=== PATIENT | female | born 1935 | race Caucasian/White ===

== ENCOUNTER 2020-09-01 11:32 | Emergency (ER) | payer MEDICARE, OTHER ==
[~2020-09-01] VITALS: Ht 152.4 cm; Wt 48.1 kg
--- NOTE | 2020-09-01 12:07 | EKG ---
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
[2020-09-01 12:18] LABS: BASO % 1 % (0-3); CALCIUM 9.4 mg/dL (8.5-10.1); EOS % 0 % (0-3); GFR 52.6; HEMATOCRIT 46.4 % (36.0-47.0); HEMOGLOBIN 15.3 g/dL (12.0-15.5); LYMPH # 1.2 x10^3/uL (1.0-4.8); LYMPH % 16 % (24-48); MEAN CORPUSCULAR HEMOGLOBIN 31 pg (25-35); MEAN CORPUSCULAR HGB CONC 33 g/dL (31-37); MEAN CORPUSCULAR VOLUME 95 fL (79-100); MONO # 0.6 x10^3/uL (0.0-1.1); MONO % 8 % (0-9); NEUT # 5.8 x10^3uL (1.8-7.7); NEUT % 76 % (31-73); PLATELET COUNT 176 x10^3/uL (140-400); POTASSIUM 4.4 mmol/L (3.5-5.1); RED BLOOD COUNT 4.88 x10^6/uL (3.50-5.40); RED CELL DISTRIBUTION WIDTH 13.3 % (11.5-14.5); WHITE BLOOD COUNT 7.7 x10^3/uL (4.0-11.0)
[2020-09-01 12:34] LABS: ALBUMIN 4.1 g/dL (3.4-5.0); DIRECT BILIRUBIN 0.1 mg/dL (0.0-0.2); TOTAL BILIRUBIN 0.5 mg/dL (0.2-1.0); TOTAL PROTEIN 7.9 g/dL (6.4-8.2)
--- NOTE | 2020-09-01 12:35 | RAD ---
Single AP view of the chest. Comparison: None. Indication: Chest pain Findings: Single lead left subclavian pacemaker is identified with tip overlying the right ventricle. The heart is enlarged. There is no pneumothorax or effusion. No air space or interstitial disease. Impression: 1. No acute cardiopulmonary process. Electronically signed by: Esteban Bae MD (09/01/2020 12:32 PM) [id number]
--- NOTE | 2020-09-01 12:40 | PHYS DOC ---
Past History Past Medical History: Hypothyroid, Other Additional Past Medical Histor: SLOW HEART Past Surgical History: Hysterectomy, Oophorectomy, Pacemaker, Other Additional Past Surgical Histo: RECTAL SURGERY; THYRIODECTOMY Alcohol Use: None General Adult EDM: Chief Complaint: CHEST PAIN HPI: HPI: 85-year-old female past medical history significant for hypothyroidism and bradycardia with pacemaker [place] [address] Virk, presents to the ed with c/o bilateral upper "chest pressure," that lasted for a few hours hour last night, around 10 or 11 PM. Patient states she has been having similar symptoms intermittently for the past 2 months. Has had a stress test but that was more than 5 years ago, no history of cardiac cath. Did not come to the ed because "I didn't want to make a big deal out of it, and it went away." Took no medications at home for it. Denies any associated symptoms including nausea, vomiting, diaphoresis, back pain, neck or shoulder pain or extremity pain or neurologic deficits. Patient is not a tobacco smoker no history of cocaine a buse. No history of syncope or underlying heart failure. No history of Covid. Review of Systems: Review of Systems: Constitutional: Denies fever or chills Eyes: Denies change in visual acuity HENT: Denies nasal congestion or sore throat Respiratory: Denies cough or shortness of breath or hemoptysis Cardiovascular: Denies syncope or edema GI: Denies abdominal pain, nausea, vomiting, bloody stools or diarrhea : Denies dysuria or hematuria Musculoskeletal: Denies back pain or joint pain Integument: Denies rash or diaphoresis Neurologic: Denies headache, focal weakness or sensory changes Endocrine: Denies polyuria or polydipsia Lymphatic: Denies swollen glands Psychiatric: Denies depression or anxiety Allergies: Allergies: Allergies Coded Allergies Type Severity Reaction Last Updated Verified No Known Drug Allergies 09/01/20 No Physical Exam: PE: Constitutional: Well developed, well nourished, no acute distress, non-toxic appearance, healthy/well-appearing 85-year-old HENT: Normocephalic, atraumatic, Eyes: EOMI, conjunctiva normal, no discharge. Neck: Normal range of motion, supple, Cardiovascular: S1/2 present, irregular rhythm Lungs & Thorax: Speaking in full sentences, bilateral equal chest rise, no tachypnea or increased work of breathing Abdomen: soft, no tenderness, Skin: Warm, dry, no erythema, no rash. [] Back: No tenderness, no CVA tenderness. [] Extremities: No tenderness, no cyanosis, no lower extremity edema Neurologic: Alert and oriented X 3, normal motor function, normal sensory function, no focal deficits noted. [] Psychologic: Affect normal, judgement normal, mood normal. [] Current Patient Data: Labs: Laboratory Tests Test 09/01/20 11:54 White Blood Count 7.7 x10^3/uL (4.0-11.0) Red Blood Count 4.88 x10^6/uL (3.50-5.40) Hemoglobin 15.3 g/dL (12.0-15.5) Hematocrit 46.4 % (36.0-47.0) Mean Corpuscular Volume 95 fL (79-100) Mean Corpuscular Hemoglobin 31 pg (25-35) Mean Corpuscular Hemoglobin Concent 33 g/dL (31-37) Red Cell Distribution Width 13.3 % (11.5-14.5) Platelet Count 176 x10^3/uL (140-400) Neutrophils (%) (Auto) 76 % (31-73) H Lymphocytes (%) (Auto) 16 % (24-48) L Monocytes (%) (Auto) 8 % (0-9) Eosinophils (%) (Auto) 0 % (0-3) Basophils (%) (Auto) 1 % (0-3) Neutrophils # (Auto) 5.8 x10^3uL (1.8-7.7) Lymphocytes # (Auto) 1.2 x10^3/uL (1.0-4.8) Monocytes # (Auto) 0.6 x10^3/uL (0.0-1.1) Eosinophils # (Auto) 0.0 x10^3/uL (0.0-0.7) Basophils # (Auto) 0.0 x10^3/uL (0.0-0.2) Prothrombin Time 11.2 SEC (9.4-11.4) Prothrombin Time INR 1.1 (0.9-1.1) Activated Partial Thromboplast Time 28 SEC (23-33) Sodium Level 139 mmol/L (136-145) Potassium Level 4.4 mmol/L (3.5-5.1) Chloride Level 106 mmol/L (98-107) Carbon Dioxide Level 25 mmol/L (21-32) Anion Gap 8 (6-14) Blood Urea Nitrogen 24 mg/dL (7-20) H Creatinine 1.0 mg/dL (0.6-1.0) Estimated GFR (Cockcroft-Gault) 52.6 Glucose Level 100 mg/dL (70-99) H Calcium Level 9.4 mg/dL (8.5-10.1) Magnesium Level 2.0 mg/dL (1.8-2.4) Total Bilirubin 0.5 mg/dL (0.2-1.0) Direct Bilirubin 0.1 mg/dL (0.0-0.2) Aspartate Amino Transferase (AST) 19 U/L (15-37) Alanine Aminotransferase (ALT) 23 U/L (14-59) Alkaline Phosphatase 81 U/L (46-116) Creatine Kinase 67 U/L (26-192) Troponin I Quantitative < 0.017 ng/mL (0-0.055) JB-Vzm-Q-Type Natriuretic Peptide 796 pg/mL (0-449) H Total Protein 7.9 g/dL (6.4-8.2) Albumin 4.1 g/dL (3.4-5.0) Lipase 232 U/L (73-393) Vital Signs: Vital Signs Date Time Temp Pulse Resp B/P (MAP) Pulse Ox O2 Delivery O2 Flow Rate FiO2 09/01/20 11:42 98.1 93 18 173/98 (123) 98 Room Air EKG: EKG: Sinus tachycardia at 108 bpm, no axis deviation, cannot discern for A. fib, 1 PVC, T wave inversions 2, 3, aVF, V2 through V6, no prior EKG for comparison Repeat EKG with atrial fibrillation at 75 bpm, no axis deviation, multiple PVCs, persistent inferior lateral T wave inversions, patient with no active chest pain Radiology/Procedures: Radiology/Procedures: IMAGING REPORT Signed PATIENT: DOYLE BAUTISTA ACCOUNT: [id number] : 1935 LOCATION: ER AGE: 85 SEX: F EXAM STATUS: REG ER ORD. PHYSICIAN: FINA RIVERA DO REASON: CHEST PAIN PROCEDURE: PORTABLE CHEST 1V Single AP view of the chest. Comparison: None. Indication: Chest pain Findings: Single lead left subclavian pacemaker is identified with tip overlying the right ventricle. The heart is enlarged. There is no pneumothorax or effusion. No air space or interstitial disease. Impression: 1. No acute cardiopulmonary process. Electronically signed by: Esteban Bae MD (09/01/2020 12:32 PM) [id number] DICTATED AND SIGNED BY: ESTEBAN BAE MD DATE: 09/01/20 1232 CC: FATIMAH HERMAN MD; FINA RIVERA DO ~MTH0 0 Heart Score: HEART Score for Chest Pain: HEART Score for Chest Pain Response (Comments) Value History Slighlty/Non-Suspicious [address] Depression 2 Age > 65 2 Risk Factors >3 Risk Factors or Hx CAD 2 Troponin < Normal Limit 0 Total 6 Risk Factors: Risk Factors: DM, Current or recent (<one month) smoker, HTN, HLP, family history of CAD, obesity. Risk Scores: Score 0 - 3: 2.5% MACE over next 6 weeks - Discharge Home Score 4 - 6: 20.3% MACE over next 6 weeks - Admit for Clinical Observation Score 7 - 10: 72.7% MACE over next 6 weeks - Early Invasive Strategies Course & Med Decision Making: Course & Med Decision Making Pertinent Labs and Imaging studies reviewed. (See chart for details) Concern for unstable angina, progressively worsening over the past 2 months. Troponin negative. EKG with inferolateral T wave inversions concerning for underlying ischemia. No ST segment elevations, no prior EKG for comparison. Ur inalysis with urinary tract infection-fosfomycin given in ED. Digoxin in normal range. Due to heart score of 6, age, and no recent stress test, I discussed case with Dr. Navarro- will transfer to [facility] for higher level of care with interventional cardiology. Patient accepted by Dr. Cyr for transfer. Pt with no active chest pain in the ED. with h/o cabg after positive stress and cath-both pt and very knowledgable about concerns and agree with this plan. All of patient's questions have been answered and she is stable at time of transfer. Dragon Disclaimer: Dragyuliana Disclaimer: This electronic medical record was generated, in whole or in part, using a voice recognition dictation system. Departure Departure: Impression: Primary Impression: Chest pain Additional Impressions: Unstable angina T wave inversion in EKG Disposition: 05 DC/TRF OTHER TYPE INSTITUTI (Accepted by Dr. Cyr) Condition: STABLE Referrals: FATIMAH HERMAN MD (PCP) FINA RIVERA DO Sep 01, 2020 12:40
[2020-09-01 13:15] LABS: BILIRUBIN,URINE NEG (NEG); CLARITY,URINE HAZY; COLOR,URINE STRAW; GLUCOSE,URINE NEG (NEG); NITRITE,URINE NEG (NEG); UROBILINOGEN,URINE 0.2 mg/dL (0.2 mg/dL)
[2020-09-01 13:16] LABS: BACTERIA,URINE MANY /HPF (0-FEW); SQUAMOUS EPITHELIAL CELL,UR OCC /LPF; WBC,URINE 20-40 /HPF (0-4)
[2020-09-01 13:16] LABS: DIG 1.3 ng/dL (0.9-2.0)
[2020-09-01] MEDS ORDERED: FOSFOMYCIN TROMETHAMINE 3 GM PACKET PO ONE (15:45)
--- NOTE | 2020-09-01 15:50 | EKG ---
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
[2020-09-01 18:56] VITALS: BP 150/73
== END 2020-09-01 19:20 | disposition short-term general hospital (02) ==
LOC: ER 11:32
DX: R07.89 Other chest pain (principal); I20.0 Unstable angina; R94.31 Abnormal electrocardiogram [ECG] [EKG]; E03.9 Hypothyroidism, unspecified; Z95.0 Presence of cardiac pacemaker
CPT/HCPCS: 36415; 71045; 80048; 80076; 80162; 81001; 82550; 83690; 83735; 83880; 84484; 85025; 85610; 85730; 87077; 87086; 87186; 93005; 99285-25

== ENCOUNTER 2020-11-08 15:35 | Emergency (ER) | payer MEDICARE ==
[~2020-11-08] VITALS: Ht 152.4 cm; Wt 48.1 kg
--- NOTE | 2020-11-08 16:06 | PHYS DOC ---
Past History Past Medical History: Hypertension, Hypothyroid, Other Additional Past Medical Histor: SLOW HEART Past Surgical History: Hysterectomy, Oophorectomy, Pacemaker, Other Additional Past Surgical Histo: RECTAL SURGERY; THYROIDECTOMY Alcohol Use: None Adult General Chief Complaint Chief Complaint: CHEST PAIN HPI HPI Patient is a 85yo female presenting for CP. Onset was 1-2 weeks ago without known inciting event or trauma. Nothing known makes better or worse. Pain is anterior sternum and radiates to all 4 extremities causing "burning" pain. Pain "isn't that bad" but is bothersome, currently 2/10 severity. Denies significant CAD, prior stenting. Does admit to having pacemaker due to "irregular heat" beat listed as slow heartbeat in EMR (3rd degree heart block?). She is on Eliquis "for my heart" and follows with Dr. Whiting in outpatient setting. No fever, chills, deep or ripping chest pain, shob, cough, ap, dysuria Review of Systems Review of Systems Fourteen body systems of review of systems have been reviewed. See HPI for pertinent positives and negative responses, other eldridge all other systems are negative, non-pertinent or non-contributory Allergies Allergies Allergies Coded Allergies Type Severity Reaction Last Updated Verified No Known Drug Allergies 09/01/20 No Physical Exam Physical Exam Constitutional: Well developed, well nourished, no acute distress, non-toxic appearance. HENT: Normocephalic, atraumatic, bilateral external ears normal, oropharynx moist, no oral exudates, nose normal. Eyes: PERRLA, EOMI, conjunctiva normal, no discharge. Neck: Normal range of motion, no tenderness, supple, no stridor. Cardiovascular: Heart rate regular with occasional PVCs, sinus rhythm, no murmurs rubs or gallops Pacemaker present on left anterior chest, mild tenderness with palpation over sternum Lungs & Thorax: Bilateral breath sounds clear to auscultation Abdomen: Bowel sounds normal, soft, no tenderness, no masses, no pulsatile masses. Nonsurgical abdomen, no peritoneal signs Skin: Warm, dry, no erythema, no rash. Back: No tenderness, no CVA tenderness. Extremities: No tenderness, no cyanosis, no clubbing, ROM intact, no edema. Neurologic: Alert and oriented X 3, grossly normal motor & sensory function, no focal deficits noted. Psychologic: Affect normal, judgement normal, mood normal. Current Patient Data Vital Signs Vital Signs Date Time Temp Pulse Resp B/P (MAP) Pulse Ox O2 Delivery O2 Flow Rate FiO2 11/08/20 15:50 98.3 87 20 186/100 (128) 97 Room Air Lab Results Laboratory Tests Test 11/08/20 16:30 11/08/20 16:55 White Blood Count 6.6 x10^3/uL Red Blood Count 5.01 x10^6/uL Hemoglobin 15.9 g/dL Hematocrit 47.9 % Mean Corpuscular Volume 96 fL Mean Corpuscular Hemoglobin 32 pg Mean Corpuscular Hemoglobin Concent 33 g/dL Red Cell Distribution Width 13.9 % Platelet Count 168 x10^3/uL Neutrophils (%) (Auto) 67 % Lymphocytes (%) (Auto) 24 % Monocytes (%) (Auto) 7 % Eosinophils (%) (Auto) 1 % Basophils (%) (Auto) 1 % Neutrophils # (Auto) 4.4 x10^3uL Lymphocytes # (Auto) 1.6 x10^3/uL Monocytes # (Auto) 0.5 x10^3/uL Eosinophils # (Auto) 0.0 x10^3/uL Basophils # (Auto) 0.0 x10^3/uL Sodium Level 141 mmol/L Potassium Level 4.7 mmol/L Chloride Level 104 mmol/L Carbon Dioxide Level 27 mmol/L Anion Gap 10 Blood Urea Nitrogen 24 mg/dL Creatinine 1.1 mg/dL Estimated GFR (Cockcroft-Gault) 47.1 BUN/Creatinine Ratio 22 Glucose Level 102 mg/dL Calcium Level 9.6 mg/dL Total Bilirubin 0.3 mg/dL Aspartate Amino Transf (AST/SGOT) 22 U/L Alanine Aminotransferase (ALT/SGPT) 28 U/L Alkaline Phosphatase 78 U/L Troponin I Quantitative < 0.017 ng/mL Total Protein 7.7 g/dL Albumin 4.0 g/dL Albumin/Globulin Ratio 1.1 Current Medications Medications (Trade) Dose Ordered Sig/Lilia Route PRN Reason Start Time Stop Time Status Last Admin Dose Admin Aspirin (Aspirin Chewable) 324 mg 1X ONCE PO 11/08/20 16:15 11/08/20 16:15 DC Aspirin (Aspirin Chewable) 162 mg 1X ONCE PO 11/08/20 16:30 11/08/20 16:31 DC 11/08/20 16:31 EKG EKG EKG ordered and interpreted by myself at 1550 hrs. as a paced rhythm at 84 bpm, prolonged TN interval at 270 otherwise unremarkable intervals, no axis deviation, T wave inversions noted in leads II, 3, aVF, no STEMI. Repeat EKG ordered and interpreted by myself at 1648 hrs. as atrial paced rhythm at 79 bpm, unremarkable intervals, no axis deviation, persistent T wave abnormalities noted in leads II and III, no STEMI Radiology/Procedures Radiology/Procedures PROCEDURE: PORTABLE CHEST 1V XR CHEST 1V History: Reason: chest pain / Spl. Instructions: / History: Comparison: September 01, 2020 Findings: No consolidation or pleural effusion. Unchanged heart size. No pneumothorax. Stable left sided pacemaker. Postoperative changes upper chest. Impression: 1. No acute cardiopulmonary process. Electronically signed by: Levi Allen DO (11/08/2020 5:29 PM) [facility] Heart Score C/O Chest Pain: Yes HEART Score for Chest Pain: HEART Score for Chest Pain Response (Comments) Value History Moderately Suspicious 1 ECG Nonspecific Repolarizatio 1 Age > 65 2 Risk Factors >3 Risk Factors or Hx CAD 2 Troponin < Normal Limit 0 Total 6 Risk Factors: Risk Factors: DM, Current or recent (<one month) smoker, HTN, HLP, family history of CAD, obesity. Risk Scores: Risk Factors: DM, Current or recent (<one month) smoker, HTN, HLP, family history of CAD, obesity. Course & Med Decision Making Course & Med Decision Making Hypertensive but hemodynamically stable patient with concerning history. Non- concerning physical exam and ER workup 324mg aspirin administered. Discussed entire ER visit and recommended cardiac observation but patient declined. 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 Whiting and can be seen within upcoming 48 hours for repeat evaluation. I again tried to recommend admission but she refused. Patient to depart home with close optical manager f/u advised. S trict return precautions discussed and understood by patient prior to departure Velia Disclaimer Velia Disclaimer This electronic medical record was generated, in whole or in part, using a voice recognition dictation system. Departure Departure: Impression: Primary Impression: Chest pain, unspecified Disposition: 01 DC HOME SELF CARE/HOMELESS Condition: STABLE Referrals: PCP,NO (PCP) Additional Instructions: You were seen for chest pain. Your workup did not show any acute abnormalities today, but does not indicate that you do not have underlying cardiovascular di sease. I did recommend that you stay in the hospital for cardiac observation today but you declined. As such, it is highly recommended that you contact your cardiology office first thing tomorrow morning to review ER visit today and discuss need for close outpatient follow-up within upcoming 48 hours. You should return to the ED if you develop worsening chest pain, shortness of breath, fever, abnormal sweating, leg swelling, or any other new or concerning symptoms. NEREIDA MOSS DO Nov 08, 2020 16:06
--- NOTE | 2020-11-08 16:13 | EKG ---
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
[2020-11-08] MEDS ORDERED: ASPIRIN CHEWABLE 81 MG TABLET. PO ONE ×2 (16:15→16:30)
[2020-11-08 16:50] LABS: BASO % 1 % (0-3); EOS % 1 % (0-3); HEMATOCRIT 47.9 % (36.0-47.0); HEMOGLOBIN 15.9 g/dL (12.0-15.5); LYMPH # 1.6 x10^3/uL (1.0-4.8); LYMPH % 24 % (24-48); MEAN CORPUSCULAR HEMOGLOBIN 32 pg (25-35); MEAN CORPUSCULAR HGB CONC 33 g/dL (31-37); MEAN CORPUSCULAR VOLUME 96 fL (79-100); MONO # 0.5 x10^3/uL (0.0-1.1); MONO % 7 % (0-9); NEUT # 4.4 x10^3uL (1.8-7.7); NEUT % 67 % (31-73); PLATELET COUNT 168 x10^3/uL (140-400); RED BLOOD COUNT 5.01 x10^6/uL (3.50-5.40); RED CELL DISTRIBUTION WIDTH 13.9 % (11.5-14.5); WHITE BLOOD COUNT 6.6 x10^3/uL (4.0-11.0)
[2020-11-08 17:25] LABS: CALCIUM 9.6 mg/dL (8.5-10.1); CREATININE 1.1 mg/dL (0.6-1.0); GFR 47.1; POTASSIUM 4.7 mmol/L (3.5-5.1)
[2020-11-08 17:30] LABS: ALBUMIN/GLOBULIN RATIO 1.1 (1.0-1.7); TOTAL BILIRUBIN 0.3 mg/dL (0.2-1.0); TOTAL PROTEIN 7.7 g/dL (6.4-8.2)
--- NOTE | 2020-11-08 17:31 | RAD ---
XR CHEST 1V History: Reason: chest pain / Spl. Instructions: / History: Comparison: September 01, 2020 Findings: No consolidation or pleural effusion. Unchanged heart size. No pneumothorax. Stable left sided pacema ker. Postoperative changes upper chest. Impression: 1. No acute cardiopulmonary process. Electronically signed by: Levi Allen DO (11/08/2020 5:29 PM) [facility] [place]
[2020-11-08 17:55] VITALS: BP 162/88
--- NOTE | 2020-11-08 17:59 | EKG ---
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
== END 2020-11-08 18:00 | disposition home or self-care (01) ==
LOC: ER 15:35
DX: R07.2 Precordial pain (principal); I10 Essential (primary) hypertension; E03.9 Hypothyroidism, unspecified; Z95.0 Presence of cardiac pacemaker; Z79.01 Long term (current) use of anticoagulants
CPT/HCPCS: 36415; 71045; 80053; 84484; 85025; 93005; 99285